=== PATIENT | female | born 1995 | race Caucasian/White ===

== ENCOUNTER 2024-10-25 18:24 | Emergency (ER) | payer BC, SELFPAY ==
[2024-10-25 18:28] VITALS: BP 109/74; PULSE 96; RESP 15; TEMP 37.3; O2SAT 96
--- NOTE | 2024-10-25 18:30 | DI.CT_ITS ---
Exam(s) CT ABDOMEN PELVIS W EXAM: CT ABDOMEN PELVIS W CLINICAL HISTORY: right lower abdominal pain TECHNIQUE: Imaging Protocol: Axial computed tomography images with coronal and sagittal reformatted images were created and reviewed. CONTRAST MATERIAL: Intravenous: Omnipaque 350 Contrast volume:75 mL Oral: No COMPARISON: No exams were available for comparison FINDINGS: ABDOMEN: Lung Bases: No acute abnormality. Liver: Normal density. No measurable mass. Portal, Superior Mesenteric, and Splenic Veins: Unremarkable. Gallbladder and Biliary Tract: No definite cholelithiasis. No biliary ductal dilatation. Pancreas: Normal density, no abnormal calcifications or inflammatory process. Spleen: Normal. Adrenals: No masses seen. Kidneys: Normal size, contour and axis. No radiodense stones or obstructive uropathy. No masses seen. Abdominal Aorta: Abdominal portion non-dilated. Bowel: No obstruction or bowel wall thickening. Appendix is unremarkable. Peritoneal Cavity: No ascites, collection or mesenteric inflammatory response. No free air. Lymph Nodes: Within normal limits. Bones: Within normal limits for the patient's age. Soft Tissues: Unremarkable. PELVIS: Bladder: Symmetric distention, no gross wall thickening. Reproductive Organs: There is an IUD in place. There is a 2.5 cm left ovarian cyst which is likely p hysiologic. Lymph Nodes: Within normal limits. Bones: Within normal limits for the patient's age. IMPRESSION: No acute abdominal or pelvic process. RADIATION DOSE DELIVERED: 740.27mGy.cm Total DLP DATA REPOSITORY: All CT scans at this facility are submitted to the National Radiology Data Registry (NRDR) Dose Index Registry (DIR) with the [employer] ([employer]). RADIATION OPTIMIZATION: All CT scans at this facility use at least one of these dose optimization te chniques: automated exposure control; mA and/or kV adjustment per patient size (includes targeted exa ms where dose is matched to clinical indication); or iterative reconstruction.
[2024-10-25 18:32] VITALS: BP 109/74; PULSE 96; RESP 15; TEMP 37.3; O2SAT 96
--- NOTE | 2024-10-25 18:40 | ED.GENADUL_ITS ---
Discharge Plan Disposition Patient Disposition: Home Condition: Stable Discharge Details Clinical Impression: Abdominal pain, Ovarian cyst Primary Care Provider: Unknown,Unknown ED Provider: Varun Quiroga Home Meds and New Rx's Prescriptions: Continued escitalopram oxalate 5 mg tablet 5 mg PO DAILY Mirena 21 mcg/24hr (up to 8 yrs) 52 mg intrauterine device 1 device intrauterine ONCE Rx Instructions: as a single dose Discharge Instructions Additional Instructions: Your CAT scan shows you have a left-sided 2.7 cm ovarian cyst Follow-up with either your PCP or PERSONAL ASSISTANT if your stomach symptoms in a week You can take 1000 mg of acetaminophen and 600 mg ibuprofen every 6 hours as needed If you feel more ill, have severe worsening pain or new symptoms such as severe vomiting return to the emergency department for reevaluation HPI General Mode of arrival: ambulatory . Date/Time Provider Initiated Documentation: 10/25/24 18:25 . Limitations to Documentation: no limitations . Information obtained by: patient . History of Present Illness 29 year old F presents to the emergency department with the chief complaint of Appendicitis, endometriosis, ovarian cyst, described as moderate, Quality is described as sharp, and is localized to the abdomen. Patient reports no radiation. Patient started experiencing this day(s) (1) and it has been constant. No relieving factors improve symptom(s), No exacerbating factors reported . Patient notes denies chest pain. Patient did receive the following treatments prior to arrival, none Related Data Home Medications ?Medication ?Instructions ?Recorded ?Confirmed escitalopram oxalate 5 mg tablet 5 mg PO DAILY 10/25/24 10/25/24 levonorgestrel 21 mcg/24 hr (up to 1 device intrauterine ONCE 10/25/24 10/25/24 8 years) 52 mg intrauterine device (Mirena) Allergies Allergy/AdvReac Type Severity Reaction Status Date / Time amoxicillin Allergy Intermediate Nausea Verified 10/25/24 18:34 General Stated Complaint: Abd Prob TRESA: 3 Review of Systems All systems reviewed & are unremarkable except as noted in HPI and below Constitutional Constitutional: Denies chills, Denies fever(s) and Denies weakness Cardiovascular Cardiovascular: Denies chest pain and Denies dyspnea Respiratory Respiratory: Denies cough and Denies dyspnea Gastrointestinal Gastrointestinal: Reports abdominal pain, Reports nausea and Denies vomiting Neurologic Neurologic: Denies weakness Exam Const General: no acute distress Orientation: alert HENMT Head: normal to inspection Ears: external ears normal General nose exam: external nose normal Mouth: moist mucous membranes Eyes General: appearance normal, both eyes and all related structures Neck Neck: normal visual inspection Resp Effort & Inspection: normal respiratory effort and able to speak in complete sentences Cardio Rate: regular rate GI Palpation: soft and tender Skin General skin exam: no rashes or lesions noted Neuro General: patient alert and patient oriented x3 Extrem General: normal to inspection Psych Mental Status: mental status grossly normal Course Vital Signs Vital signs: Vital Signs Temperature 37.3 C 10/25/24 18:28 Pulse 96 H 10/25/24 18:28 Respiratory Rate 15 10/25/24 18:28 Blood Pressure 109/74 10/25/24 18:28 Pulse Oximetry 96 10/25/24 18:28 Temperature 37.3 C 10/25/24 18:32 Pulse 96 H 10/25/24 18:32 Respiratory Rate 15 10/25/24 18:32 Blood Pressure 109/74 10/25/24 18:32 Blood Pressure Position Sitting 10/25/24 18:32 Pulse Oximetry 96 10/25/24 18:32 Oxygen Delivery Method Room Air 10/25/24 18:32 Oxygen Flow Rate 0 10/25/24 18:32 Medical Decision Making 2-year-old female comes in with 1 day of lower abdominal pain. She was at [facility] ER earlier today and had lab work that was unremarkable other than being positive for influenza, your CAT scan is currently not operational and they felt she needed a CT to evaluate for possible appendicitis so he was transferred here by private vehicle. She says her pain is somewhat improved. Her abdomen is soft and she does have tenderness in the right lower quadrant without guarding. Given location of pain I will proceed with CT abdomen pelvis to evaluate for possible appendicitis versus ovarian cyst. CT shows 2.7 cm left ovarian cyst, normal appendix, otherwise no significant findings. Her pain has been primarily on her right side so I do not feel strongly that this is actually the cause of her pain. She is resting in bed in no distress and only has minimal tenderness in the right lower quadrant without guarding so I feel she is stable for discharge, she will follow-up with either PCP or PERSONAL ASSISTANT. Return precautions given Differential Diagnosis Differential Diagnosis: Appendicitis, endometriosis, ovarian cyst Quality:SDOH Health Related Social Needs: No Data to Display PFSH All Active Problems (Updated 01/30/25 @ 20:53 by Varun Quiroga MD) Ovarian cyst (Acute) Abdominal pain (Acute) Social History Smoking risk assessment performed?: No PAWSS Have you Been Recently Intoxicated or Drunk Within the Last 30 days?: No Have you Ever Experienced Previous Episodes of Alcohol Withdrawal?: No Have you ever Experienced Withdrawal Seizures?: No Have you ever Experienced Delirium Tremens(DT)s?: No Have you ever undergone Alcohol Rehabilitation Treatment (i.e, inpt ot outpatient treatment programs)?: No Have you ever Experienced Blackouts?: No Have you ever Combined Alcohol with other Downers within the last 90 days?: No Have you ever Combined Alcohol with any other Substance of Abuse during the last 90 days?: No Positive Blood Alcohol level on Presentation? [PCS.BAL]: No Evidence of Increased Autonomic Activity (i.e. HR>120, tremor, sweating, agitation, nausea)?: No Result: 0
[2024-10-25] MEDS: Ketorolac 15 MG/ML VIAL IVP (18:49)
[2024-10-25] MEDS: Omnipaque 350 MG/ML 100 ML BTL IJ (19:38)
[2024-10-25] MEDS: Normal Saline Flush 10 ML SYR IVP (19:40)
[2024-10-25] MEDS: Normal Saline - Diluent 50 ML VIAL IJ (19:40)
--- NOTE | 2024-10-25 20:46 | DI.VRAD_ITS ---
PROCEDURE INFORMATION: Exam: CT Abdomen And Pelvis With Contrast Exam date and time: 10/25/2024 7:32 PM Age: 29 years old Clinical indication: Abdominal pain; Rl quadrant pain TECHNIQUE: Imaging protocol: Computed tomography of the abdomen and pelvis with contrast. Contrast material: OMNIPAQUE 350; Contrast volume: 75 ml; Contrast route: INTRAVENOUS (IV); COMPARISON: No relevant prior studies available. FINDINGS: Liver: Liver normal in size. No mass. Gallbladder and biliary ducts: No gallstones or biliary ductal dilatation. Pancreas: Normal. No ductal dilation. Spleen: Normal. No splenomegaly. Adrenal glands: Normal. No mass. Kidneys and ureters: Homogeneous enhancement of parenchyma. Both kidneys concentrate and excrete contrast. No hydronephrosis. Stomach and bowel: Stomach contracted, limiting evaluation. No dilated segments of small bowel or colonic dilatation. Appendix: Normal appendix. Intraperitoneal space: Unremarkable. No free air. No significant fluid collection. Vasculature: Unremarkable. No abdominal aortic aneurysm. Lymph nodes: Unremarkable. No enlarged lymph nodes. Urinary bladder: Urinary bladder contracted, limiting evaluation. Reproductive: IUD appears satisfactorily positioned in anteverted uterus. 2.7 cm cyst in left ovary. Right ovary appears normal. Bones/joints: Unremarkable. No acute fracture. Soft tissues: Unremarkable. IMPRESSION: 1. 2.7 cm left ovarian cyst. 2. Normal appendix. 3. IUD. Dictated and Authenticated by: Simón Clements MD. Orderin Kimber Bond MD
[2024-10-25 21:16] VITALS: BP 109/74; PULSE 96; RESP 15; TEMP 37; O2SAT 96
== END 2024-10-25 21:18 | disposition home or self-care (01) ==
PROVIDERS: Emergency Provider Emergency Medicine
DX: R10.9 Unspecified abdominal pain (principal); N83.202 Unspecified ovarian cyst, left side
CPT/HCPCS: 96374; 99285; 74177; 99284; J1885; J3490